=== PATIENT | female | born 1980 | race Hispanic/Latino ===

== ENCOUNTER → 2018-05-10 | Outpatient (CLI) | payer OTHER | LOC: MAMMO 13:22 | PROVIDERS: ATTEND Obstetrics & Gynecology | DX: Z12.31 Encounter for screening mammogram for malignant neoplasm of breast (principal) | CPT/HCPCS: 77067 ==

== ENCOUNTER 2019-12-20 11:55 | Emergency (ER) | payer OTHER ==
[~2019-12-20] VITALS: Ht 162.6 cm; Wt 68.0 kg
[2019-12-20] MEDS ORDERED: ONDANSETRON HCL INJ 2MG/ML 2ML 2 MG/ML VIAL IV PRN (12:15)
[2019-12-20] MEDS ORDERED: SODIUM CHLORIDE 0.9% 1000ML 1,000 ML IV SCH (12:15)
[2019-12-20] MEDS ORDERED: DIATRIZOATE MEGL/DIATRIZOA SOD 30 ML BTL PO ONE (12:30)
[2019-12-20 13:03] LABS: BASOPHILS % 0.8 % (0.0-1.0); EOSINOPHILS # (AUTO) 0.1 (0.0-0.4); LYMPHOCYTES # (AUTO) 1.2 (1.0-3.2); LYMPHOCYTES % 24.9 % (18.0-39.1); MEAN CORPUSCULAR HEMOGLOBIN 31.5 pg (28-32); MEAN CORPUSCULAR HGB CONC 33.3 g/dL (31-35); MEAN CORPUSCULAR VOLUME 94.4 fL (81-99); MONOCYTES # (AUTO) 0.4 (0.2-0.8); MONOCYTES % 9.1 % (4.4-11.3); NEUTROPHILS # (AUTO) 2.9 (2.1-6.9); PLATELET COUNT 186 x10e3/uL (140-360); RED BLOOD COUNT 4.45 x10e6/uL (3.6-5.1)
[2019-12-20 13:25] LABS: ALANINE AMINOTRANSFERASE 95 IU/L (0-55); ALBUMIN 3.8 g/dL (3.5-5.0); ALBUMIN/GLOBULIN RATIO 1.3 (0.8-2.0); ALKALINE PHOSPHATASE 75 IU/L (40-150); ANION GAP 14.9 mmol/L (8-16); BLOOD UREA NITROGEN 6 mg/dL (7-26); BUN/CREATININE RATIO 10 (6-25); CARBON DIOXIDE 25 mmol/L (22-29); CHLORIDE 109 mmol/L (98-107); CREATININE, SERUM 0.62 mg/dL (0.57-1.11); EST GLOMERULAR FILTRATION RATE > 60 ML/MIN (60-); GLUCOSE 90 mg/dL (74-118); LIPASE 57 U/L (8-78); POTASSIUM 3.9 mmol/L (3.5-5.1); SODIUM 145 mmol/L (136-145)
[2019-12-20 13:31] LABS: HCG,QUANTITATIVE < 1.20 mIU/mL (0-10)
[2019-12-20 13:42] LABS: CLARITY,URINE SL CLOUDY (CLEAR); COLOR,URINE YELLOW (YELLOW)
[2019-12-20 13:43] LABS: BILIRUBIN,URINE NEGATIVE (NEGATIVE); KETONES,URINE NEGATIVE (NEGATIVE); LEUKOCYTE ESTERASE ,URINE TRACE (NEGATIVE); NITRITE,URINE POSITIVE (NEGATIVE); PROTEIN,URINE DIPSTICK NEGATIVE (NEGATIVE); URINE UROBILINOGEN 0.2 mg/dL (0.2 - 1)
[2019-12-20] MEDS ORDERED: SODIUM CHLORIDE 0.9% 50ML 50 ML ONE (13:48)
[2019-12-20] MEDS ORDERED: IOPAMIDOL 370 MG/ML 200 ML INFUS..BTL INJ ONE (13:49)
[2019-12-20 13:50] LABS: BACTERIA,URINE MANY /HPF; EPITHELIAL CELLS,URINE FEW /LPF; RBC,URINE 0-5 /HPF (0-5)
[2019-12-20] MEDS ORDERED: CEFTRIAXONE SOD 1 GM/NS 50 ML 50 ML IV ONE (14:30)
[2019-12-20] MEDS ORDERED: PEG (High)/E-LYTE SOLN 4,000 ML BTL PO ONE (15:15)
[2019-12-20 15:32] VITALS: BP 113/77
== END 2019-12-20 17:56 | disposition home or self-care (01) ==
LOC: ER 12:30
DX: R10.31 Right lower quadrant pain (principal); K59.00 Constipation, unspecified; N39.0 Urinary tract infection, site not specified; G35 Multiple sclerosis
CPT/HCPCS: 36415; 51700; 74177; 80053; 81001; 83690; 84702; 85025; 87086; 99285; J0696; J2405; J7030; Q9967; 87186

== ENCOUNTER → 2020-07-04 | Outpatient (CLI) | payer OTHER ==
[~2020-07-04] MED LIST: GADOBENATE DIMEGLUMINE 1 ML IV ONE
== END ==
LOC: MRI 12:44
PROVIDERS: ATTEND Psychiatry & Neurology Neurology
DX: G35 Multiple sclerosis (principal)
CPT/HCPCS: 70553; 72156; 72157; A9577

== ENCOUNTER → 2020-08-26 | Outpatient (CLI) | payer OTHER | LOC: MRI 09:39 | PROVIDERS: ATTEND Physician Assistant | DX: G37.3 Acute transverse myelitis in demyelinating disease of central nervous system (principal) | CPT/HCPCS: 72158; A9577 ==

== ENCOUNTER → 2021-01-22 | Outpatient (CLI) | payer OTHER ==
[~2021-01-22] MED LIST changes: +SODIUM CHLORIDE 0.9% 50ML 50 ML ONE
== END ==
LOC: MRI 09:39
PROVIDERS: ATTEND Internal Medicine Endocrinology, Diabetes & Metabolism
DX: E22.1 Hyperprolactinemia (principal)
CPT/HCPCS: 70553; A9577

== ENCOUNTER 2022-08-22 22:07 | Emergency (ER) | payer OTHER ==
[~2022-08-22] VITALS: Ht 162.6 cm; Wt 63.5 kg
[2022-08-22] MEDS ORDERED: PREDNISONE 20 MG TAB PO STA (22:27)
[2022-08-22] MEDS ORDERED: PREDNISONE 20 MG TAB ONE (22:34)
[2022-08-23] MEDS ORDERED: AZITHROMYCIN250 MG PO ×2 (00:37→00:42)
[2022-08-23] MEDS ORDERED: PREDNISONE20 MG PO ×2 (00:37→00:42)
[2022-08-23] MEDS ORDERED: AFRIN15 ML INH ×2 (00:37→00:42)
[2022-08-23 00:42] VITALS: O2SAT 100
== END 2022-08-23 00:47 | disposition home or self-care (01) ==
LOC: ER 22:10
DX: J01.90 Acute sinusitis, unspecified (principal); R42 Dizziness and giddiness; G35 Multiple sclerosis
CPT/HCPCS: 70450; 99283; J7512

== ENCOUNTER 2023-09-17 19:18 | Emergency (ER) | payer OTHER ==
[~2023-09-17] VITALS: Ht 162.6 cm; Wt 68.0 kg
[~2023-09-17 19:18] MED LIST changes: +AFRIN15 ML INH; +AZITHROMYCIN250 MG PO; +CEPHALEXIN500 MG PO; -GADOBENATE DIMEGLUMINE 1 ML IV ONE; +PREDNISONE20 MG PO; -SODIUM CHLORIDE 0.9% 50ML 50 ML ONE
[2023-09-17 20:15] VITALS: PULSE 78; RESP 16; TEMP 98.5
[2023-09-17 21:32] LABS: INFLUENZAE A&B ANTIGEN (RAPID) NEGATIVE (NEGATIVE); RESPIRATORY SYNC. VIRUS NEGATIVE (NEGATIVE)
[2023-09-17] MEDS: PENICILLIN G BENZATHINE LA 1.2 MU TBX IM STA (22:21)
[2023-09-17 22:23] VITALS: BP 118/85; PULSE 85; RESP 16; TEMP 98.8; O2SAT 100
[2023-09-17] MEDS ORDERED: AMOX TR-K CLV1 EAC2 PO (22:23)
[2023-09-17] MEDS ORDERED: ONDANSETRON ODT4 MG SL (22:23)
== END 2023-09-17 22:33 | disposition home or self-care (01) ==
LOC: ER 19:20
DX: R05.9 Cough, unspecified (principal); J02.0 Streptococcal pharyngitis; J11.1 Influenza due to unidentified influenza virus with other respiratory manifestations; G35 Multiple sclerosis; Z11.52 Encounter for screening for COVID-19
CPT/HCPCS: 83518; 87070; 87400; 87420; 99283; U0002